=== PATIENT | female | born 1945 | race Asian ===

== ENCOUNTER 2016-09-21 20:57 | Emergency (ER) | payer MEDICARE, MEDICAID ==
[~2016-09-21] VITALS: Ht 157.5 cm; Wt 68.0 kg
[2016-09-22] MEDS ORDERED: cefTRIAXone SOD 1,000 MG VL ONE (01:29)
[2016-09-22] MEDS ORDERED: cefTRIAXone SOD 1,000 MG VL IM ONE (01:45)
[2016-09-22 01:49] VITALS: BP 156/70
== END 2016-09-22 01:50 | disposition home or self-care (01) ==
LOC: ER 21:00
DX: S01.111A Laceration without foreign body of right eyelid and periocular area, initial encounter (principal); W22.8XXA Striking against or struck by other objects, initial encounter; Y93.89 Activity, other specified; Y92.89 Other specified places as the place of occurrence of the external cause; Y99.8 Other external cause status
CPT/HCPCS: 96372; 99283; J0696